=== PATIENT | female | born 1960 | race Caucasian/White ===

== ENCOUNTER 2017-12-25 08:40 | Emergency (ER) | payer SELFPAY ==
[~2017-12-25] VITALS: Ht 170.2 cm; Wt 59.0 kg
[2017-12-25 08:42] VITALS: BP_SYST 124
--- NOTE | 2017-12-25 08:49 | NUR ---
Patient to ER bed 6 to gown for evaluation. Side rails up.Report given to Jacquelin RAND.
--- NOTE | 2017-12-25 08:50 | NUR ---
PATIENT C/C OF PAIN TO LEFT HIP ORIGINATING AT ANTERIOR LEFT HIP AND NUMBNESS TO LATERAL SIDE OF THIGH. PATIENT STATES IT STARTED ON SUNDAY AFTER MOPPING AND DOING HOUSE CHORES, WORSENING OVER WEEKEND WITH REST. PATIENT STATES SHE IS CONCERNED ABOUT A DVT AFTER RESEARCHING ONLINE. PATIENT EXAM SHOWS NO DIFFERENCE IN TEMPERATURE BETWEEN LOWER EXTREMITIES, NO BRUISING OR DISCOLORATION NOTED. PEDAL AND POSTERIOR TIBIALIS PULSES PRESENT +2. PATIENT STATES SHE HAS NUMBNESS AND TINGLING TO BILATERAL FEET, HAS BEEN CHECKED FOR DIABETES AT HER PRIMARY DOCTOR AND WAS NEGATIVE. PATIENT HAS NO HISTORY OF RECENT FALLS. MD AWARE, WILL SEE PATIENT. PATIENT DENIES, NAUSEA, VOMITING, DIARRHEA AT THIS TIME.
--- NOTE | 2017-12-25 09:11 | NUR ---
ER at bedside examining patient.
[2017-12-25] MEDS ORDERED: KETOROLAC TROMETHAMINE 60 MG/2 ML VIAL IM ONE (09:15)
--- NOTE | 2017-12-25 09:34 | NUR ---
pain medication given IM, patient informed that medication will take approximately 30 minutes to take effect. will continue to monitor and follow up with patient.
--- NOTE | 2017-12-25 10:19 | NUR ---
ULTRASOUND AT BEDSIDE FOR EXAM. LATE PAIN MEDICATION REASSESSMENT DUE TO PATIENT CARE.
--- NOTE | 2017-12-25 11:18 | NUR ---
Patient given written and verbal discharge instructions and verbalizes understanding. ER MD discussed with patient the results and treatment provided. Patient in stable condition. ID arm band removed. Rx of Tramadol and Naproxen given. Patient educated on pain management and to follow up with PMD. Pain Scale 2/10. Opportunity for questions provided and answered.
[2017-12-25 11:19] VITALS: BP_SYST 135
== END 2017-12-25 11:18 | disposition home or self-care (01) ==
LOC: SED 08:40
DX: M65.252 Calcific tendinitis, left thigh (principal)
CPT/HCPCS: 72170; 73502; 93971; 96372; 99284; J1885